=== PATIENT | female | born 1955 | race Caucasian/White ===

== ENCOUNTER 2024-08-25 07:40 | Day surgery (SDC) | payer OTHER ==
[2024-08-25 08:11] LABS: Absolute Basophils 0.1 K/uL (0-0.5); Absolute Eosinophils 0.2 K/uL (0-0.5); Absolute Monocytes 0.8 K/uL (0.1-1.3); Absolute Neutrophil 7.4 K/uL (1.8-8.0); Basophils % 1.1 % (0-1.3); Eosinophils % 1.8 % (0-4.4); Hematocrit 41.7 % (36.0-45.0); Lymphocytes % 19.2 % (15.3-44.8); MCHC 33.5 g/dL (32.0-36.0); MCV 92.6 fL (80-100); MPV 7.5 fL (7.6-11.3); Monocytes % 7.8 % (3.3-12.3); Neutrophils % 70.1 % (41.7-73.7); Platelets 308 thou/uL (152-406); RBC Red Blood Cell Count 4.51 M/uL (3.86-4.86); Red Cell Distribution Width 13.5 % (12.1-15.2)
[2024-08-25 08:14] LABS: PT Prothrombin Time 11.6 SECONDS (9.4-12.5); Protime INR 1.04
[2024-08-25 08:20] VITALS: O2SAT 96; BMI 30.9
[2024-08-25 08:28] LABS: Albumin 3.5 g/dL (3.4-5.0); Anion Gap 8.7 mEq/L (5.0-15.0); Bilirubin Direct 0.2 mg/dL (0-0.2); Bilirubin Indirect, Calculated 0.4 mg/dL (0.2-0.8); Bilirubin Total 0.6 mg/dL (0.2-1.0); Globulin 3.4 g/dL (2.3-3.5); Potassium 3.7 mEq/L (3.5-5.1); Protein, Total 6.9 g/dL (6.4-8.2)
[2024-08-25] MEDS ORDERED: HYDROCODONE/APAP 7.5/325 MG TAB ONE ×2 (09:49→12:00)
[2024-08-25 11:47] LABS: CSF Glucose 74 mg/dL (40-70)
--- NOTE | 2024-08-25 12:05 | RAD REPORT ---
XR SPINE LUMBAR PUNCTURE CLINICAL INDICATION: Memory loss. Mild cognitive impairment TECHNIQUE: The risks (including the risks of bleeding, infection, headache, nerve injury), benefits, and alternatives of the procedure were carefully explained to the patient who wished to proceed. Informed written consent was obtained . The patient was placed prone into the fluoroscopy suite. Skin and subcutaneous tissues were dissected with lidocaine Under fluoroscopic guidance a 22-gauge spinal needle was advanced into the thecal sac Approximately 14.5 cc CSF removed and sent to the lab. Complications: None Fluoroscopy time 0.4 minutes. No fluoroscopic spot image obtained. IMPRESSION: Lumbar puncture
[2024-08-25 12:50] LABS: Appearance CLEAR (CLEAR); Body Fluid Source CSF; Color of Supernate Not Xanthochromic (Not Xantho); Color of fluid Colorless (COLORLESS); Tube # #2
[2024-08-25 12:51] LABS: Body Fluid WBC 2 /mm^3
[2024-08-25 13:34] VITALS: BP 111/68; TEMP 97.2
== END 2024-08-25 13:10 | disposition home or self-care (01) ==
LOC: DS 07:40
PROVIDERS: ATTEND Psychiatry & Neurology Neurology with Special Qualifications in Child Neurology
PROC: 009U3ZX Drainage of Spinal Canal, Percutaneous Approach, Diagnostic (ICD-10-PCS; principal; 2024-08-25)
PROC: B01BZZZ Fluoroscopy of Spinal Cord (ICD-10-PCS; 2024-08-25)
DX: G31.84 Mild cognitive impairment of uncertain or unknown etiology (principal); D51.9 Vitamin B12 deficiency anemia, unspecified; E55.9 Vitamin D deficiency, unspecified; I10 Essential (primary) hypertension; M19.90 Unspecified osteoarthritis, unspecified site; G43.909 Migraine, unspecified, not intractable, without status migrainosus
CPT/HCPCS: 36415; 77003; 80048; 80076; 82542; 82945; 84157; 85025; 85610; 85730; 89050

== ENCOUNTER 2024-09-25 13:48 | Emergency (ER) | payer OTHER ==
[2024-09-25 14:49] LABS: Specific Gravity 1.007 (1.005-1.030); Sqamous Epithelial <5 /HPF (None Seen); Urine Bacteria None Seen /HPF (<20); Urine Bilirubin NEGATIVE (Negative); Urine Blood Negative (Negative); Urine Clarity Turbid (Clear); Urine Color Colorless (Yellow); Urine Culture Reflex Order NOT NEEDED; Urine Glucose TRACE (Negative); Urine Ketones NEGATIVE (Negative); Urine Microscopic Reflex YN ORDER UMIC; Urine Nitrite NEGATIVE (Negative); Urine Protein NEGATIVE (Negative); Urine RBC <5 /HPF (None Seen); Urine Urobilinogen Normal (Normal); Urine WBC <5 /HPF (<5); Urine WBC Clump Rare /HPF (None Seen); Urine Yeast (Budding) Trace /HPF (None Seen)
--- NOTE | 2024-09-25 14:56 | RAD REPORT ---
EXAM: Chest Single View HISTORY: htn COMPARISON: None. FINDINGS: LUNGS/PLEURA: The lungs are clear. No pleural effusions or pneumothorax. No pulmonary edema. MEDIASTINUM: The mediastinal silhouette is within normal limits. CARDIAC: The cardiac silhouette is within normal limits. UPPER ABDOMEN: No significant abnormality. BONES: No acute fracture. LINES/TUBES/OTHER: N/A IMPRESSION: No evidence of acute cardiopulmonary disease.
[2024-09-25 15:08] LABS: Absolute Basophils 0.1 K/uL (0-0.5); Absolute Eosinophils 0.1 K/uL (0-0.5); Absolute Lymphocytes (CBC) 1.9 K/uL (0.7-4.9); Absolute Monocytes 1.4 K/uL (0.1-1.3); Basophils % 0.8 % (0-1.3); Eosinophils % 0.4 % (0-4.4); Hematocrit 38.5 % (36.0-45.0); Hemoglobin 12.8 g/dL (12.0-15.0); Lymphocytes % 12.9 % (15.3-44.8); MCH 30.7 pg (27.0-35.0); MCHC 33.2 g/dL (32.0-36.0); MCV 92.5 fL (80-100); MPV 7.3 fL (7.6-11.3); Monocytes % 9.5 % (3.3-12.3); Neutrophils % 76.4 % (41.7-73.7); Platelets 376 thou/uL (152-406); RBC Red Blood Cell Count 4.16 M/uL (3.86-4.86); Red Cell Distribution Width 13.3 % (12.1-15.2)
[2024-09-25 15:10] LABS: PT Prothrombin Time 11.8 SECONDS (9.4-12.5); Protime INR 1.06
[2024-09-25 15:30] LABS: ALT/SGPT 30 U/L (13-56); AST/SGOT 24 U/L (15-37); Albumin 3.2 g/dL (3.4-5.0); Alkaline Phosphatase 105 U/L (45-117); Anion Gap 8.1 mEq/L (5.0-15.0); BUN Blood Urea Nitrogen 11 mg/dL (7-18); Bicarbonate 28 mEq/L (21-32); Bilirubin Direct < 0.2 mg/dL (0-0.2); Bilirubin Indirect, Calculated 0.1 mg/dL (0.2-0.8); Bilirubin Total 0.3 mg/dL (0.2-1.0); Globulin 3.2 g/dL (2.3-3.5); Glomerular Filtration Rate 78 ml/min (=/>90); Glucose Level 117 mg/dL (74-106); Magnesium 1.7 mg/dL (1.6-2.4); NT PRO-BNP 738 pg/mL (<125); Potassium 3.1 mEq/L (3.5-5.1); Protein, Total 6.4 g/dL (6.4-8.2); Sodium Level 138 mEq/L (136-145); Troponin High Sensitivity 10.7 pg/mL (<58.9)
--- NOTE | 2024-09-25 17:08 | ER ---
Nurse's Notes [facility] Name: Felecia Arriaza Age: 69 yrs Sex: Female : 1955 Arrival Date: 09/25/2024 Time: 13:48 Bed 17 Private MD: Diagnosis: Essential (primary) hypertension;Hypokalemia Presentation: 09/25 14:14 Chief complaint: Patient states: for a couple of days been feeling off, dizzy, tm6 lightheaded. blurry vision, ears ringing. Today home BPs were elevated. Coronavirus screen: Client denies travel out of the [place] in the last 14 days. Ebola Screen: Patient negative for fever greater than or equal to 101.5 degrees Fahrenheit, and additional compatible Ebola Virus Disease symptoms Patient denies exposure to infectious person. Patient denies travel to an Ebola-affected area in the 21 days before illness onset. No symptoms or risks identified at this time. Initial Sepsis Screen: Does the patient meet any 2 criteria? No. Patient's initial sepsis screen is negative. Does the patient have a suspected source of infection? No. Patient's initial sepsis screen is negative. Risk Assessment: Do you want to hurt yourself or someone else? Patient reports no desire to harm self or others. Onset of symptoms was September 22, 2024. 14:14 Method Of Arrival: Ambulatory tm6 14:14 Acuity: CARMELO 3 tm6 Triage Assessment: 14:16 General: Appears in no apparent distress. Behavior is calm, cooperative. Pain: Denies tm6 pain. EENT: No signs and/or symptoms were reported regarding the EENT system. Neuro: Level of Consciousness is awake, alert, obeys commands, Oriented to person, place, time, situation, Reports blurred vision for a couple of days dizziness. Cardiovascular: Patient's skin is warm and dry. Respiratory: Airway is patent Respiratory effort is even, unlabored, Respiratory pattern is regular, symmetrical. GI: No signs and/or symptoms were reported involving the gastrointestinal system. Abdomen is flat, non-distended. : No signs and/or symptoms were reported regarding the genitourinary system. Derm: No signs and/or symptoms reported regarding the dermatologic system. Musculoskeletal: No signs and/or symptoms reported regarding the musculoskeletal system. Historical: - Allergies: 14:16 Keflex; tm6 - PMHx: 14:16 Dementia; Hypertensive disorder; tm6 - PSHx: 14:16 hip and knee; tm6 - Immunization history:: Client reports receiving the 2nd dose of the Covid vaccine. - Infectious Disease History:: Denies. - Social history:: Smoking status: unknown. Screenin:05 [facility] ED Fall Risk Assessment (Adult) History of falling in the last 3 months, rs5 including since admission No falls in past 3 months (0 pts) Confusion or Disorientation No (0 pts) Intoxicated or Sedated No (0 pts) Impaired Gait No (0 pts) Mobility Assist Device Used No (0 pt) Altered Elimination No (0 pt) Score/Fall Risk Level 0 - 2 = Low Risk Oriented to surroundings, Maintained a safe environment. 14:05 Abuse screen: Denies threats or abuse. Nutritional screening: No deficits noted. rs5 Tuberculosis screening: No symptoms or risk factors identified. Assessment: 14:05 General: Appears in no apparent distress. comfortable, Behavior is calm, cooperative. rs5 Pain: Denies pain. Neuro: Level of Consciousness is awake, alert, obeys commands, Oriented to person, place, time, situation, pt states "my head doesn't hurt but it feels weird," provider notified . Cardiovascular: Patient's skin is warm and dry. Respiratory: Airway is patent Respiratory effort is even, unlabored, Respiratory pattern is regular, symmetrical. GI: Abdomen is round non-distended, Abd is soft and non tender X 4 quads. : No signs and/or symptoms were reported regarding the genitourinary system. EENT: No signs and/or symptoms were reported regarding the EENT system. Derm: Skin is intact, Skin is pink, warm \\T\\ dry. Musculoskeletal: Range of motion: intact in all extremities. 15:10 Reassessment: Patient and/or family updated on plan of care and expected duration. Pain rs5 level reassessed. Patient is alert, oriented x 3, equal unlabored respirations, skin warm/dry/pink. 15:45 Reassessment: Patient and/or family updated on plan of care and expected duration. Pain rs5 level reassessed. Patient is alert, oriented x 3, equal unlabored respirations, skin warm/dry/pink. 17:01 Reassessment: Patient and/or family updated on plan of care and expected duration. Pain rs5 level reassessed. Patient is alert, oriented x 3, equal unlabored respirations, skin warm/dry/pink. 17:30 Reassessment: Patient and/or family updated on plan of care and expected duration. Pain rs5 level reassessed. Patient is alert, oriented x 3, equal unlabored respirations, skin warm/dry/pink. Vital Signs: 14:14 BP 166 / 90; Pulse 73; Resp 19; Temp 96.5(TE); Pulse Ox 98% on R/A; MAP 109 mmHg; tm6 Weight 81.65 kg; Height 5 ft. 4 in. ; Pain 0/10; 15:43 BP 162 / 74; Pulse 60; Resp 17; Temp 98(O); Pulse Ox 99% on R/A; rs5 16:33 BP 151 / 73; Pulse 70; Resp 16; Pulse Ox 99% on R/A; rs5 17:22 BP 155 / 77; Pulse 64; Resp 17; Pulse Ox 99% on R/A; rs5 14:14 Body Mass Index 30.90 (81.65 kg, 162.56 cm) tm6 14:14 Pain Scale: Adult tm6 Polo Coma Score: 17:05 Eye Response: spontaneous(4). Motor Response: obeys commands(6). Verbal Response: estefani oriented(5). Total: 15. NIH Stroke Scale Scores: 17:04 NIHSS Score: 0 estefani ED Course: 13:50 Patient arrived in ED. mr 13:54 Jean Pierre Schultz MD is Attending Physician. estefani 14:05 Patient has correct armband on for positive identification. Placed in gown. Bed in low rs5 position. Call light in reach. Side rails up X 1. 14:12 No provider procedures requiring assistance completed. Inserted saline lock: 20 gauge rs5 in right antecubital area, using aseptic technique. Blood collected. Flushed with 10 mL NS. 14:15 Karthikeyan Shah, LOIS is Primary Nurse. rs5 14:16 Triage completed. tm6 14:16 Arm band placed on right wrist. tm6 14:51 XRAY Chest (1 view) In Process Unspecified. EDMS 17:07 Puma Dailey MD is Referral Physician. estefani 17:35 IV discontinued, intact, bleeding controlled, No redness/swelling at site. Pressure rs5 dressing applied. Administered Medications: 17:05 Drug: Potassium PO Effervescent Tablet 50 mEq PO once; dissolve in 4 ounces of water or rs5 juice Route: PO; 17:33 Follow up: Response: No adverse reaction rs5 17:10 Drug: Norvasc PO 5 mg PO once Route: PO; rs5 17:33 Follow up: Response: No adverse reaction rs5 Medication: 15:46 VIS not applicable for this client. rs5 Outcome: 17:08 Discharge ordered by MD. jara 17:35 Discharged to home ambulatory, rs5 17:35 Condition: stable rs5 17:35 Discharge instructions given to patient, family, Instructed on discharge instructions, follow up and referral plans. medication usage, Demonstrated understanding of instructions, follow-up care, medications, Prescriptions given X 4, 17:39 Patient left the ED. rs5 NIH Stroke Scale - NIH Stroke Score Date: 09/25/2024 Time: 17:04 Total Score = 0 10. Dysarthria (speech clarity - read or repeat words) - 0(Normal) 11. Extinction and Inattention (visual/tactile/auditory/spatial/personal) - 0(No abnormality) 1a. Level of Consciousness (LOC) - 0(Alert) 1b. Level of Consciousness (LOC) (Month \\T\\ Age) - 0(Both) 1c. LOC Commands (Open \\T\\ Closes Eyes/Rug Frame Mounter) - 0(Both) 2. Best Gaze (Lateral Gaze Paresis) - 0(Normal) 3. Visual Field Loss - 0(No visual loss) 4. Facial Palsy - 0(Normal) 5a. Left Arm: Motor (10-second hold) - 0(No drift) 5b. Right Arm: Motor (10-second hold) - 0(No drift) 6a. Left Leg: Motor (5-second hold - always test supine) - 0(No drift) 6b. Right Leg: Motor (5-second hold - always test supine) - 0(No drift) 7. Limb Ataxia (finger/nose \\T\\ heel/cohen - test with eyes open) - 0(Absent) 8. Sensory Loss (pinprick arms/legs/face) - 0(Normal) 9. Best Language: Aphasia (description/naming/reading) - 0(No aphasia) Initials: estefani Signatures: Dispatcher [employer] Jean Pierre Mckeon MD MD cha Rivera, Mary, [facility] mr Karthikeyan Shah, RN RN rs5 Sarah Jenkins RN RN tm6
--- NOTE | 2024-09-25 17:08 | EDPHYS ---
Physician Documentation [facility] Name: Felecia Arriaza Age: 69 yrs Sex: Female : 1955 Arrival Date: 09/25/2024 Time: 13:48 Bed 17 Private MD: ED Physician Jean Pierre Schultz HPI: 09/25 17:03 This 69 yrs old Female presents to ER via Ambulatory with complaints of High Blood estefani Pressure. 17:03 The patient has elevated blood pressure and discovered this at home, with a home estefani device. Onset: The symptoms/episode began/occurred 5 day(s) ago. Modifying factors: The symptoms are aggravated by activity, The symptoms are alleviated by remaining still. Associated signs and symptoms: The patient has no apparent associated signs or symptoms. Severity of symptoms: At its worst the blood pressure was moderate, in the emergency department the blood pressure is unchanged. Historical: - Allergies: 14:16 Keflex; tm6 - PMHx: 14:16 Dementia; Hypertensive disorder; tm6 - PSHx: 14:16 hip and knee; tm6 - Immunization history:: Client reports receiving the 2nd dose of the Covid vaccine. - Infectious Disease History:: Denies. - Social history:: Smoking status: unknown. ROS: 17:04 Constitutional: Negative for fever, chills, and weight loss, Eyes: Negative for injury, estefani pain, redness, and discharge, ENT: Negative for injury, pain, and discharge, Neck: Negative for injury, pain, and swelling, Cardiovascular: Negative for chest pain, palpitations, and edema, Respiratory: Negative for shortness of breath, cough, wheezing, and pleuritic chest pain, Abdomen/GI: Negative for abdominal pain, nausea, vomiting, diarrhea, and constipation, Back: Negative for injury and pain, : Negative for injury, bleeding, discharge, and swelling, MS/Extremity: Negative for injury and deformity, Skin: Negative for injury, rash, and discoloration, Neuro: Negative for headache, weakness, numbness, tingling, and seizure, Psych: Negative for depression, anxiety, suicide ideation, homicidal ideation, and hallucinations, Allergy/Immunology: Negative for hives, rash, and allergies, Endocrine: Negative for neck swelling, polydipsia, polyuria, polyphagia, and marked weight changes, Hematologic/Lymphatic: Negative for swollen nodes, abnormal bleeding, and unusual bruising, Exam: 17:04 Constitutional: This is a well developed, well nourished patient who is awake, alert, estefani and in no acute distress. Head/Face: Normocephalic, atraumatic. Eyes: Pupils equal round and reactive to light, extra-ocular motions intact. Lids and lashes normal. Conjunctiva and sclera are non-icteric and not injected. Cornea within normal limits. Periorbital areas with no swelling, redness, or edema. ENT: Nares patent. No nasal discharge, no septal abnormalities noted. Tympanic membranes are normal and external auditory canals are clear. Oropharynx with no redness, swelling, or masses, exudates, or evidence of obstruction, uvula midline. Mucous membranes moist. Neck: Trachea midline, no thyromegaly or masses palpated, and no cervical lymphadenopathy. Supple, full range of motion without nuchal rigidity, or vertebral point tenderness. No Meningismus. Chest/axilla: Normal chest wall appearance and motion. Nontender with no deformity. No lesions are appreciated. Cardiovascular: Regular rate and rhythm with a normal S1 and S2. No gallops, murmurs, or rubs. Normal PMI, no JVD. No pulse deficits. Respiratory: Lungs have equal breath sounds bilaterally, clear to auscultation and percussion. No rales, rhonchi or wheezes noted. No increased work of breathing, no retractions or nasal flaring. Abdomen/GI: Soft, non-tender, with normal bowel sounds. No distension or tympany. No guarding or rebound. No evidence of tenderness throughout. Back: No spinal tenderness. No costovertebral tenderness. Full range of motion. Female : Normal external genitalia. Skin: Warm, dry with normal turgor. Normal color with no rashes, no lesions, and no evidence of cellulitis. MS/ Extremity: Pulses equal, no cyanosis. Neurovascular intact. Full, normal range of motion. Neuro: Awake and alert, GCS 15, oriented to person, place, time, and situation. Cranial nerves II-XII grossly intact. Motor strength 5/5 in all extremities. Sensory grossly intact. Cerebellar exam normal. Normal gait. Psych: Awake, alert, with orientation to person, place and time. Behavior, mood, and affect are within normal limits. 17:04 ECG was reviewed by the Attending Physician. Vital Signs: 14:14 BP 166 / 90; Pulse 73; Resp 19; Temp 96.5(TE); Pulse Ox 98% on R/A; MAP 109 mmHg; tm6 Weight 81.65 kg; Height 5 ft. 4 in. ; Pain 0/10; 15:43 BP 162 / 74; Pulse 60; Resp 17; Temp 98(O); Pulse Ox 99% on R/A; rs5 16:33 BP 151 / 73; Pulse 70; Resp 16; Pulse Ox 99% on R/A; rs5 17:22 BP 155 / 77; Pulse 64; Resp 17; Pulse Ox 99% on R/A; rs5 14:14 Body Mass Index 30.90 (81.65 kg, 162.56 cm) tm6 14:14 Pain Scale: Adult tm6 NIH Stroke Scale Scores: 17:04 NIHSS Score: 0 estefani Polo Coma Score: 17:05 Eye Response: spontaneous(4). Motor Response: obeys commands(6). Verbal Response: estefani oriented(5). Total: 15. MDM: 13:54 Medical Screening Exam initiated estefani 17:05 Differential diagnosis: cluster headache, hypertensive crisis, Malignant HTN, estefani hypertensive headache. Data reviewed: vital signs, nurses notes, lab test result(s), EKG, radiologic studies, plain films. Consideration of Admission/Observation Escalation of care including admission/observation considered. I considered the following discharge prescriptions or medication management in the emergency department Medications were administered in the Emergency Department. See MAR. Independent interpretation of the following test(s) in the Emergency Department EKG: See my EKG interpretation above. Test considered but Not performed: CT: no ct head. Historians other than the Patient: Family Member: 2 family members well informed. 09/25 13:59 Order name: Basic Metabolic Panel; Complete Time: 16:46 estefani 09/25 13:59 Order name: CBC with Diff; Complete Time: 15:20 09/25 13:59 Order name: LFT's; Complete Time: 16:46 09/25 13:59 Order name: Magnesium; Complete Time: 16:46 09/25 13:59 Order name: NT PRO-BNP; Complete Time: 16:46 09/25 13:59 Order name: PT-INR; Complete Time: 15:20 09/25 13:59 Order name: Troponin HS; Complete Time: 16:46 [facility] 09/25 13:59 Order name: Urinalysis w/ reflexes; Complete Time: 15:20 [facility] 09/25 13:59 Order name: XRAY Chest (1 view); Complete Time: 15:20 [facility] 09/25 13:59 Order name: Cardiac monitoring; Complete Time: 15:02 [facility] 09/25 13:59 Order name: EKG - Nurse/Tech; Complete Time: 15:02 [facility] 09/25 13:59 Order name: IV Saline Lock; Complete Time: 15: [facility] 09/25 13:59 Order name: Labs collected and sent; Complete Time: 15: [facility] 09/25 13:59 Order name: O2 Per Protocol; Complete Time: 15: [facility] 09/25 13:59 Order name: O2 Sat Monitoring; Complete Time: 15:02 [facility] EC:04 Rate is 64 beats/min. Rhythm is regular. QRS [place] is Normal. AL interval is normal. QRS estefani interval is normal. QT interval is normal. No Q waves. T waves are Normal. No ST changes noted. Clinical impression: Normal ECG and No evidence of ischemia. Interpreted by me. Reviewed by me. Administered Medications: 17:05 Drug: Potassium PO Effervescent Tablet 50 mEq PO once; dissolve in 4 ounces of water or rs5 juice Route: PO; 17:33 Follow up: Response: No adverse reaction rs5 17:10 Drug: Norvasc PO 5 mg PO once Route: PO; rs5 17:33 Follow up: Response: No adverse reaction rs5 Disposition Summary: 09/25/24 17:08 Discharge Ordered Notes: Location: Home estefani Problem: new estefani Symptoms: have improved estefani Condition: Stable estefani Diagnosis - Essential (primary) hypertension estefani - Hypokalemia estefani Followup: estefani - With: Private Physician - When: 2 - 3 days - Reason: Recheck today's complaints, Continuance of care, Re-evaluation by your physician Followup: estefani - With: Puma Dailey MD - When: 2 - 3 days - Reason: Recheck today's complaints, Continuance of care, Re-evaluation by your physician Discharge Instructions: - Discharge Summary Sheet estefani - Potassium Content of Foods estefani - Hypertension, Adult estefani - Hypertension, Adult, [id number] estefani - How to Take Your Blood Pressure, [id number] estefani - Aspirin and Your Heart estefani - Hypokalemia estefani - Managing Your Hypertension [facility] Forms: - Medication Reconciliation Form estefani - Antibiotic Education estefani - Prescription Opioid Use estefani - Patient Portal Instructions [facility] - Leadership Thank You Letter [facility] Prescriptions: - bisoprolol-hydrochlorothiazide 5-6.25 mg Oral tablet - take 1 tablet ORAL route every 12 hours; 40 tablet; Refills: 0, Product estefani Selection Permitted - Norvasc 5 mg Oral Tablet - take 1 tablet ORAL route once daily; 20 tablet; Refills: 0, Product Selection estefani Permitted - Potassium Chloride 20 meq Oral Packet - take 1 packet ORAL route once daily 1 packet in 6 (six) ounces of water or estefani juice; Take after meal; 20 packet; Refills: 0, Product Selection Permitted - Lisinopril 20 mg Oral tablet - take 1 tablet ORAL route every 12 hours; 40 tablet; Refills: 0, Product estefani Selection Permitted NIH Stroke Scale - NIH Stroke Score Date: 09/25/2024 Time: 17:04 Total Score = 0 10. Dysarthria (speech clarity - read or repeat words) - 0(Normal) 11. Extinction and Inattention (visual/tactile/auditory/spatial/personal) - 0(No abnormality) 1a. Level of Consciousness (LOC) - 0(Alert) 1b. Level of Consciousness (LOC) (Month \T\ Age) - 0(Both) 1c. LOC Commands (Open \T\ Closes Eyes/Manufacturer'S Service Representative) - 0(Both) 2. Best Gaze (Lateral Gaze Paresis) - 0(Normal) 3. Visual Field Loss - 0(No visual loss) 4. Facial Palsy - 0(Normal) 5a. Left Arm: Motor (10-second hold) - 0(No drift) 5b. Right Arm: Motor (10-second hold) - 0(No drift) 6a. Left Leg: Motor (5-second hold - always test supine) - 0(No drift) 6b. Right Leg: Motor (5-second hold - always test supine) - 0(No drift) 7. Limb Ataxia (finger/nose \T\ heel/cohen - test with eyes open) - 0(Absent) 8. Sensory Loss (pinprick arms/legs/face) - 0(Normal) 9. Best Language: Aphasia (description/naming/reading) - 0(No aphasia) Initials: estefani Signatures: Dispatcher [employer] EDJean Pierre Dunham MD MD cha Sotelo, Ricky, RN RN rs5 Sarah Jenkins RN RN tm6 Corrections: (The following items were deleted from the chart) 13:59 13:59 Chest Single View+[email or web address] ordered. EDMS EDMS
[2024-09-25] MEDS ORDERED: POTASSIUM 25 MEQ EFFERV TAB ONE (17:09)
[2024-09-25] MEDS ORDERED: AMLODIPINE 5 MG TAB ONE (17:17)
[2024-09-25 19:46] VITALS: BP 162/74; TEMP 98; O2SAT 99
--- NOTE | 2024-09-27 14:15 | EKG ---
Test Date: 2024-09-25 Test Time: 14:36:14 Roll Reclaimer: RL MEASUREMENT RESULTS: Intervals: Rate: 64 FL: 148 QRSD: 86 QT: 442 QTc: 455 [place]: P: 53 FL: 148 QRS: -24 T: 26 INTERPRETIVE STATEMENTS: Normal sinus rhythm Nonspecific ST and T wave abnormality Abnormal ECG Compared to ECG 02/09/2016 11:38:59 ST (T wave) deviation now present Electronically Signed On 09-27-24 14:12:25 TAKER AWAY by Saad Burks
== END 2024-09-25 17:39 | disposition home or self-care (01) ==
LOC: ER 13:48
DX: I10 Essential (primary) hypertension (principal); E87.6 Hypokalemia
CPT/HCPCS: 36415; 71045; 80048; 80076; 81001; 83735; 83880; 84484; 85025; 85610; 93005; 99284

== ENCOUNTER 2024-09-26 17:54 | Emergency (ER) | payer OTHER ==
[2024-09-26] MEDS ORDERED: HYDRALAZINE HCL 20 MG/ML VIAL ONE (19:24)
[2024-09-26] MEDS ORDERED: AMLODIPINE 10 MG TAB ONE (19:24)
--- NOTE | 2024-09-26 19:29 | RAD REPORT ---
EXAMINATION: CT HEAD WITHOUT CONTRAST CLINICAL INDICATION: Female, 69 years old.ringing in ears, htn TECHNIQUE: Axial CT images from the skull base to the vertex without intravenous contrast. Coronal an d sagittal reformatted images were created from the data set. One or more of the following dose reduction techniques were used: Automated exposure control, adjustment of the mA and/or kV according to patient size, and/or iterative reconstruction. Unless otherwise specified, incidental findings do not require dedicated imaging follow-up. [id number]. COMPARISON: No prior exam. FINDINGS: INTRACRANIAL: No acute intracranial hemorrhage. No hydrocephalus. No mass effect or midline shift. No significant white matter disease. VASCULATURE: No visualized abnormalities in the arteries or dural venous sinuses. SCALP/SKULL: No significant soft tissue or osseous abnormalities. SINUSES: The visualized paranasal sinuses and mastoid air cells are predominantly clear. IMPRESSION: No acute intracranial abnormality.
[2024-09-26 19:51] LABS: Absolute Basophils 0.1 K/uL (0-0.5); Absolute Eosinophils 0.2 K/uL (0-0.5); Absolute Lymphocytes (CBC) 2.8 K/uL (0.7-4.9); Absolute Monocytes 1.1 K/uL (0.1-1.3); Absolute Neutrophil 7.8 K/uL (1.8-8.0); Basophils % 1.1 % (0-1.3); Eosinophils % 1.3 % (0-4.4); Hematocrit 39.7 % (36.0-45.0); Hemoglobin 13.1 g/dL (12.0-15.0); Lymphocytes % 23.1 % (15.3-44.8); MCH 30.9 pg (27.0-35.0); MCV 93.6 fL (80-100); MPV 7.5 fL (7.6-11.3); Monocytes % 9.2 % (3.3-12.3); Neutrophils % 65.3 % (41.7-73.7); Platelets 390 thou/uL (152-406); RBC Red Blood Cell Count 4.25 M/uL (3.86-4.86); Red Cell Distribution Width 13.5 % (12.1-15.2)
[2024-09-26 19:56] LABS: Specific Gravity 1.008 (1.005-1.030); Urine Bilirubin NEGATIVE (Negative); Urine Blood Negative (Negative); Urine Clarity Clear (Clear); Urine Color Light-Yellow (Yellow); Urine Glucose NEGATIVE (Negative); Urine Ketones NEGATIVE (Negative); Urine Microscopic Reflex YN NO UMIC; Urine Nitrite NEGATIVE (Negative); Urine Protein NEGATIVE (Negative); Urine Urobilinogen Normal (Normal); Urine pH 7.5 (5.0-7.0)
--- NOTE | 2024-09-26 19:59 | RAD REPORT ---
EXAM: Chest Single View HISTORY: elevated blood pressure COMPARISON: 09/25/2024 FINDINGS: LUNGS/PLEURA: The lungs are clear. No pleural effusions or pneumothorax. No pulmonary edema. MEDIASTINUM: The mediastinal silhouette is within normal limits. CARDIAC: The cardiac silhouette is within normal limits. UPPER ABDOMEN: No significant abnormality. BONES: No acute fracture. LINES/TUBES/OTHER: N/A IMPRESSION: No evidence of acute cardiopulmonary disease.
[2024-09-26 20:08] LABS: Anion Gap 9.6 mEq/L (5.0-15.0); Potassium 3.6 mEq/L (3.5-5.1); Troponin High Sensitivity 9.2 pg/mL (<58.9)
[2024-09-26] MEDS ORDERED: NA CHLORIDE 0.9% 500 ML ONE (20:43)
[2024-09-26] MEDS ORDERED: MECLIZINE HCL 12.5 MG TAB ONE (20:43)
[2024-09-26] MEDS ORDERED: LORazepam 2 MG/ML VIAL ONE (23:05)
--- NOTE | 2024-09-26 23:32 | EDPHYS ---
Physician Documentation [facility] Name: Felecia Arriaza Age: 69 yrs Sex: Female : 1955 Arrival Date: 09/26/2024 Time: 17:54 Bed 19 Private MD: ED Physician Jean Pierre Schultz HPI: 09/26 19:00 This 69 yrs old Female presents to ER via Ambulatory with complaints of High Blood cp Pressure. 19:00 The patient has elevated blood pressure and discovered this at a drugstore. cp 19:00 Onset: The symptoms/episode began/occurred gradually, and became worse today. The cp patient has experienced similar episodes in the past, seen in this ED previous night for elevated blood pressure and prescribed blood pressure medications. Patient is accompanied to the emergency department by her sister who reports they were at the pharmacy filling the prescriptions for the blood pressure medicine when they checked her blood pressure and noticed that it was elevated with a systolic pressure of 213. They became concerned so they proceeded to the emergency department for reevaluation today. Patient reportedly is prescribed 3 blood pressure medications. Patient complains of a headache, ringing in the ears and dizziness. Denies any chest pain. Historical: - Allergies: 18:50 Keflex; ss - PMHx: 18:50 Dementia; Hypertensive disorder; ss - PSHx: 18:50 hip and knee; ss - Immunization history:: Adult Immunizations unknown. - Infectious Disease History:: Denies. - Social history:: Smoking status: Patient denies any tobacco usage or history of. ROS: 19:05 Constitutional: Negative for body aches, chills, fever, poor PO intake, cp 19:05 Eyes: Negative for injury, pain, redness, and discharge, cp 19:05 Cardiovascular: Negative for chest pain, edema, palpitations, 19:05 Respiratory: Negative for cough, shortness of breath, wheezing, 19:05 ENT: Positive for tinnitus, Negative for drainage from ear(s), ear pain, sore throat, cp difficulty swallowing, difficulty handling secretions, 19:05 Abdomen/GI: Negative for vomiting, diarrhea, constipation, 19:05 Neuro: Positive for dizziness, headache, Negative for altered mental status, numbness, syncope, near syncope, weakness, 19:05 All other systems are negative, Exam: 19:10 Constitutional: The patient appears in no acute distress, alert, awake, cp non-diaphoretic, non-toxic, well developed, well nourished, 19:10 Head/Face: Normocephalic, atraumatic. cp 19:10 Eyes: Periorbital structures: appear normal, Pupils: equal, round, and reactive to light and accomodation, Extraocular movements: intact throughout, Conjunctiva: normal, no exudate, no injection, Sclera: no appreciated abnormality, Lids and lashes: appear normal, bilaterally, 19:10 ENT: External ear(s): are unremarkable, Nose: is normal, Mouth: Lips: moist, Oral mucosa: pink and intact, moist, Posterior pharynx: Airway: no evidence of obstruction, patent, 19:10 Neck: ROM/movement: is normal, is supple, without pain, no range of motions limitations, 19:10 Chest/axilla: Inspection: normal, 19:10 Cardiovascular: Rate: normal, Rhythm: regular, Edema: is not appreciated, JVD: is not appreciated, 19:10 Respiratory: the patient does not display signs of respiratory distress, Respirations: normal, no use of accessory muscles, no retractions, labored breathing, is not present, Breath sounds: are clear throughout, no decreased breath sounds, no stridor, no wheezing, 19:10 Abdomen/GI: Inspection: abdomen appears normal, Palpation: abdomen is soft and non-tender, in all quadrants, 19:10 Neuro: Orientation: no acute changes, per family, Mentation: no acute changes, per family, Motor: moves all fours, no focal deficits, Gait: is steady, Vital Signs: 18:49 BP 189 / 100; Pulse 77; Resp 17; Temp 97.2(TE); Pulse Ox 97% ; Weight 81.65 kg; Height ss 5 ft. 4 in. ; 18:50 BP 182 / 118; ss 19:39 BP 173 / 81; lg3 20:06 BP 167 / 92; Pulse 78; Pulse Ox 95% on R/A; MAP 114 mmHg; tm6 20:58 BP 158 / 75; Pulse 76; Resp 20; Pulse Ox 98% on R/A; kj2 22:10 BP 170 / 79; Pulse 73; Resp 18; Pulse Ox 96% on R/A; kj2 23:46 BP 107 / 74; Pulse 80; Resp 18; Temp 98; Pulse Ox 98% on R/A; kj2 09/27 00:57 BP 135 / 90; Pulse 80; Resp 18; Temp 98; Pulse Ox 98% on R/A; kj2 09/26 18:49 Body Mass Index 30.90 (81.65 kg, 162.56 cm) ss MDM: 09/26 18:49 Medical Screening Exam initiated 19:00 Differential diagnosis: hypertensive crisis, Malignant HTN, CVA, intracerebral cp hemorrhage. 23:30 Data reviewed: vital signs, nurses notes, lab test result(s), EKG, radiologic studies, cp CT scan, plain films, and as a result, I will discharge patient. 23:30 I considered the following discharge prescriptions or medication management in the emergency department Medications were administered in the Emergency Department. See MAR. Independent interpretation of the following test(s) in the Emergency Department EKG: See my EKG interpretation above. 23:30 Response to treatment: the patient's symptoms have markedly improved after treatment, and as a result, I will discharge patient. ED course: Vital signs stable. Had an extensive discussion with patient and her family concerning her blood pressure medications. Patient has a history of dementia and has a sister that is not present who assists with helping patient manage her medications. At this time and is unclear whether or not patient has been taking prescribed blood pressure meds and so I discussed that at this point I will not make any changes to her blood pressure medications and that they need to continue to monitor and make sure patient is taking blood pressure medications as prescribed and to follow-up with her primary care physician or feed mill operator to go over her meds. 09/26 18:56 Order name: Basic Metabolic Panel; Complete Time: 20:10 09/26 20:10 Interpretation: Normal except: GLUC 142; CA 10.9. 09/26 18:56 Order name: CBC with Diff; Complete Time: 20:09 09/26 20:09 Interpretation: Normal except: WBC 12.00; MPV 7.5. 09/26 18:56 Order name: Magnesium; Complete Time: 20:10 09/26 18:56 Order name: Troponin HS; Complete Time: 20:10 09/26 19:53 Order name: Urinalysis w/ reflexes; Complete Time: 20:09 EDMS 09/26 20:09 Interpretation: Normal except: UPH 7.5. 09/26 18:56 Order name: XRAY Chest (1 view); Complete Time: 20:09 cp 09/26 20:09 Interpretation: Report review. 09/26 18:58 Order name: CT Head Brain wo Cont; Complete Time: 20:09 cp 09/26 20:09 Interpretation: Report reviewed. 09/26 18:56 Order name: EKG; Complete Time: 18:56 09/26 18:56 Order name: EKG - Nurse/Tech; Complete Time: 19:43 cp 09/26 18:56 Order name: IV Saline Lock; Complete Time: 19:43 09/26 18:56 Order name: Labs collected and sent; Complete Time: 19:43 09/26 18:56 Order name: O2 Per Protocol; Complete Time: 19:43 09/26 18:56 Order name: O2 Sat Monitoring; Complete Time: 19:43 cp Administered Medications: 19:43 Drug: amLODIPine PO 10 mg PO once Route: PO; lg3 23:25 Follow up: Response: No adverse reaction kj2 19:43 Drug: hydrALAZINE IVP 10 mg IVP once Route: IVP; Site: right antecubital; lg3 23:25 Follow up: Response: No adverse reaction kj2 20:46 Drug: Meclizine PO 25 mg PO once Route: PO; kj2 23:24 Follow up: Response: No adverse reaction kj2 20:47 Drug: NS 0.9% IV 500 ml 500 ml IV at 1 bolus once; to be given as a bolus over 60 kj2 minutes Volume: 500 ml; Route: IV; Rate: 1 bolus; Site: right antecubital; 21:47 Follow up: IV Status: Completed infusion; IV Intake: 500ml kj2 23:33 Drug: Ativan IVP 0.5 mg IVP once Route: IVP; Site: right antecubital; kj2 23:46 Follow up: Response: No adverse reaction; Anxiety decreased; Blood pressure is lowered kj2 09/27 00:14 Drug: Acetaminophen PO 1000 mg PO once Route: PO; kj2 00:56 Follow up: Response: No adverse reaction kj2 Disposition Summary: 09/26/24 23:31 Discharge Ordered Notes: Location: Home cp Problem: chronic cp Symptoms: have improved cp Condition: Stable cp Diagnosis - Hypertensive heart disease without heart failure cp - Headache cp - Tinnitus, unspecified ear cp Followup: cp - With: Private Physician - When: 2 - 3 days - Reason: Recheck today's complaints Discharge Instructions: - Discharge Summary Sheet cp - Tinnitus cp - General Headache Without Cause cp - Hypertension, Adult cp - Aspirin and Your Heart cp - Form - Blood Pressure Record Sheet cp - How to Take Your Blood Pressure cp Forms: - Medication Reconciliation Form cp - Antibiotic Education cp - Prescription Opioid Use cp - Patient Portal Instructions cp - Leadership Thank You Letter cp Signatures: Dispatcher [employer] EDMS Lindy Vale, RN RN ss Jean Pierre Gunderson PA PA cp Paula Hameed RN RN lg3 Tonia Masterson RN RN kj2 Corrections: (The following items were deleted from the chart) 09/26 18:56 18:56 BASIC METABOLIC PANEL+C.LAB.BRZ ordered. EDMS EDMS 18:56 18:56 CBC+H.LAB.BRZ ordered. EDMS EDMS 18:56 18:56 MAGNESIUM+C.LAB.BRZ ordered. EDMS EDMS 18:56 18:56 Troponin High Sensitivity+C.LAB.BRZ ordered. EDMS EDMS
--- NOTE | 2024-09-26 23:32 | ER ---
Nurse's Notes [facility] Name: Felecia Arriaza Age: 69 yrs Sex: Female : 1955 Arrival Date: 09/26/2024 Time: 17:54 Bed 19 Private MD: Diagnosis: Hypertensive heart disease without heart failure;Headache;Tinnitus, unspecified ear Presentation: 09/26 18:49 Chief complaint: Patient states: high blood pressure. Coronavirus screen: Client denies ss travel out of the [place] in the last 14 days. Ebola Screen: Patient denies exposure to infectious person. Patient denies travel to an Ebola-affected area in the 21 days before illness onset. Initial Sepsis Screen: Does the patient meet any 2 criteria? No. Patient's initial sepsis screen is negative. Does the patient have a suspected source of infection? No. Patient's initial sepsis screen is negative. Risk Assessment: Do you want to hurt yourself or someone else? Patient reports no desire to harm self or others. Onset of symptoms is unknown. 18:49 Method Of Arrival: Ambulatory ss 18:49 Acuity: CARMELO 3 ss Triage Assessment: 19:45 General: Appears in no apparent distress. Behavior is cooperative. Pain: Complains of kj2 pain in HEADACHE. Historical: - Allergies: 18:50 Keflex; ss - PMHx: 18:50 Dementia; Hypertensive disorder; ss - PSHx: 18:50 hip and knee; ss - Immunization history:: Adult Immunizations unknown. - Infectious Disease History:: Denies. - Social history:: Smoking status: Patient denies any tobacco usage or history of. Screenin:45 [facility] ED Fall Risk Assessment (Adult) History of falling in the last 3 months, kj2 including since admission No falls in past 3 months (0 pts) Confusion or Disorientation Yes (5 pts) Intoxicated or Sedated No (0 pts) Impaired Gait Yes (1 pt) Mobility Assist Device Used Yes (1 pt) Altered Elimination No (0 pt) Score/Fall Risk Level 3 or more points = High Risk Maintained a safe environment, Hourly rounding (assess needs \T\ fall precautionary measures) done, Utilized family, sitter, or virtual concrete engineer as indicated. Abuse screen: Denies threats or abuse. Denies injuries from another. Nutritional screening: No deficits noted. Tuberculosis screening: No symptoms or risk factors identified. Assessment: 20:07 Reassessment: from [facility], patient stated she was dizzy/lightheaded. VS rechecked, tm6 provider notified. 20:30 Reassessment: Patient appears in no apparent distress at this time. Patient and/or kj2 family updated on plan of care and expected duration. Pain level reassessed. Patient is alert, oriented x 3, equal unlabored respirations, skin warm/dry/pink. 20:59 Reassessment: Patient appears in no apparent distress at this time. Patient and/or kj2 family updated on plan of care and expected duration. Pain level reassessed. Patient is alert, oriented x 3, equal unlabored respirations, skin warm/dry/pink. 22:10 Reassessment: Patient appears in no apparent distress at this time. Patient and/or kj2 family updated on plan of care and expected duration. Pain level reassessed. Patient is alert, oriented x 3, equal unlabored respirations, skin warm/dry/pink. 23:29 Reassessment: Patient appears in no apparent distress at this time. Patient and/or kj2 family updated on plan of care and expected duration. Pain level reassessed. Patient is alert, oriented x 3, equal unlabored respirations, skin warm/dry/pink. 23:40 Reassessment: DISCHARGE ON HOLD, PT C/O HEADACHE. kj2 09/27 00:14 Reassessment: PATIENT REPORTS FEELING WORSE, PROVIDER NOTIFIED. kj2 00:56 Reassessment: No changes from previously documented assessment. Patient and/or family kj2 updated on plan of care and expected duration. Pain level reassessed. Patient is alert, oriented x 3, equal unlabored respirations, skin warm/dry/pink. Vital Signs: 09/26 18:49 BP 189 / 100; Pulse 77; Resp 17; Temp 97.2(TE); Pulse Ox 97% ; Weight 81.65 kg; Height ss 5 ft. 4 in. ; 18:50 BP 182 / 118; ss 19:39 BP 173 / 81; lg3 20:06 BP 167 / 92; Pulse 78; Pulse Ox 95% on R/A; MAP 114 mmHg; tm6 20:58 BP 158 / 75; Pulse 76; Resp 20; Pulse Ox 98% on R/A; kj2 22:10 BP 170 / 79; Pulse 73; Resp 18; Pulse Ox 96% on R/A; kj2 23:46 BP 107 / 74; Pulse 80; Resp 18; Temp 98; Pulse Ox 98% on R/A; kj2 09/27 00:57 BP 135 / 90; Pulse 80; Resp 18; Temp 98; Pulse Ox 98% on R/A; kj2 09/26 18:49 Body Mass Index 30.90 (81.65 kg, 162.56 cm) ED Course: 09/26 17:56 Patient arrived in ED. im 18:16 Jean Pierre Gunderson PA is PHCP. cp 18:16 Jean Pierre Schultz MD is Attending Physician. cp 18:50 Triage completed. ss 18:50 Arm band placed on left wrist. ss 19:05 Patient has correct armband on for positive identification. Bed in low position. Call kj2 light in reach. Adult w/ patient. Provided Education on: CALL LIGHT. 19:19 CT Head Brain wo Cont In Process Unspecified. EDMS 19:43 Initial lab(s) drawn, by ED staff, sent to lab. Inserted saline lock: 22 gauge in right lg3 antecubital area, using aseptic technique. Blood collected. Flushed with 10 mL NS. 19:43 Basic Metabolic Panel Sent. lg3 19:43 Magnesium Sent. lg3 19:43 CBC with Diff Sent. lg3 19:43 Troponin HS Sent. lg3 19:46 XRAY Chest (1 view) In Process Unspecified. EDMS 19:51 EKG done, by ED staff, reviewed by Jean Pierre BLUM. oe 20:40 Tonia Masterson, RN is Primary Nurse. kj2 23:27 Assisted to bathroom. kj2 23:47 No provider procedures requiring assistance completed. IV discontinued, intact, kj2 bleeding controlled, No redness/swelling at site. Pressure dressing applied. Administered Medications: 19:43 Drug: amLODIPine PO 10 mg PO once Route: PO; lg3 23:25 Follow up: Response: No adverse reaction kj2 19:43 Drug: hydrALAZINE IVP 10 mg IVP once Route: IVP; Site: right antecubital; lg3 23:25 Follow up: Response: No adverse reaction kj2 20:46 Drug: Meclizine PO 25 mg PO once Route: PO; kj2 23:24 Follow up: Response: No adverse reaction kj2 20:47 Drug: NS 0.9% IV 500 ml 500 ml IV at 1 bolus once; to be given as a bolus over 60 kj2 minutes Volume: 500 ml; Route: IV; Rate: 1 bolus; Site: right antecubital; 21:47 Follow up: IV Status: Completed infusion; IV Intake: 500ml kj2 23:33 Drug: Ativan IVP 0.5 mg IVP once Route: IVP; Site: right antecubital; kj2 23:46 Follow up: Response: No adverse reaction; Anxiety decreased; Blood pressure is lowered kj2 09/27 00:14 Drug: Acetaminophen PO 1000 mg PO once Route: PO; kj2 00:56 Follow up: Response: No adverse reaction kj2 Medication: 09/26 23:28 VIS not applicable for this client. kj2 Intake: 21:47 IV: 500ml; Total: 500ml. kj2 Outcome: 23:31 Discharge ordered by MD. cp 23:47 Discharged to home via wheelchair, kj2 23:47 Condition: stable 23:47 Discharge instructions given to patient, family, Instructed on discharge instructions, follow up and referral plans. Demonstrated understanding of instructions, follow-up care, 09/27 00:57 Patient left the ED. kj2 Signatures: Dispatcher [employer] EDMS Lindy Vale RN RN Jean Pierre Zabala PA PA cp Espinosa, Orlando oe Able, Lacie, RN RN lg3 Maria Fernanda Woodward Tawney RN RN tm6 Tonia Masterson RN RN kj2
[2024-09-26] MEDS ORDERED: ACETAMINOPHEN 500 MG TAB ONE (23:59)
[2024-09-27 03:36] VITALS: TEMP 98; O2SAT 98
[2024-09-27 03:37] VITALS: BP 135/90
--- NOTE | 2024-09-28 10:19 | EKG ---
Test Date: 2024-09-26 Test Time: 19:48:17 [employer]: JANAK MEASUREMENT RESULTS: Intervals: Rate: 71 NJ: 126 QRSD: 86 QT: 430 QTc: 467 Carrier: P: 37 NJ: 126 QRS: -36 T: 20 INTERPRETIVE STATEMENTS: Normal sinus rhythm Left axis deviation Nonspecific ST abnormality Abnormal ECG Compared to ECG 09/25/2024 14:36:14 Left-axis deviation now present ST (T wave) deviation still present Electronically Signed On 09-28-24 10:17:55 DISTRIBUTION LINEMAN by Brian Verduzco
== END 2024-09-27 00:57 | disposition home or self-care (01) ==
LOC: ER 17:54
DX: I11.9 Hypertensive heart disease without heart failure (principal); R51.9 Headache, unspecified; H93.19 Tinnitus, unspecified ear; I10 Essential (primary) hypertension
CPT/HCPCS: 96361; 93005; 85025; 80048; 36415; 83735; 81003; 84484; 70450; 71045; 96375; 96374; 99284; J8597; J0360; J7040

== ENCOUNTER 2025-02-15 08:09 | Day surgery (SDC) | payer OTHER ==
[2025-02-15 08:43] LABS: PT Prothrombin Time 11.3 SECONDS (10-13.0); PTT, Activated Partial Thromb 27.9 SECONDS (27.2-37.4); Protime INR 0.99
[2025-02-15 08:47] LABS: Absolute Basophils 0.1 K/uL (0-0.5); Absolute Eosinophils 0.2 K/uL (0-0.5); Absolute Lymphocytes (CBC) 2.4 K/uL (0.7-4.9); Absolute Monocytes 0.9 K/uL (0.1-1.3); Absolute Neutrophil 6.9 K/uL (1.8-8.0); Basophils % 1.2 % (0-1.3); Eosinophils % 1.8 % (0-4.4); Hematocrit 39.6 % (36.0-45.0); Hemoglobin 13.5 g/dL (12.0-15.0); Lymphocytes % 23.3 % (15.3-44.8); MCH 31.2 pg (27.0-35.0); MCHC 34.1 g/dL (32.0-36.0); MCV 91.6 fL (80-100); MPV 7.7 fL (7.6-11.3); Monocytes % 8.3 % (3.3-12.3); Neutrophils % 65.4 % (41.7-73.7); Nucleated Red Blood Cells % 0.1 % (0-0); Platelets 331 thou/uL (152-406); RBC Red Blood Cell Count 4.33 M/uL (3.86-4.86); Red Cell Distribution Width 14.2 % (12.1-15.2)
[2025-02-15 09:20] VITALS: BP 125/70; TEMP 97.5; O2SAT 97; BMI 28.1
[2025-02-15 09:21] LABS: ALT/SGPT 23 U/L (13-56); Albumin 3.6 g/dL (3.4-5.0); Albumin/Globulin Ratio 1.1 (1.1-1.8); Alkaline Phosphatase 105 U/L (45-117); Anion Gap 6.8 mEq/L (5.0-15.0); BUN Blood Urea Nitrogen 13 mg/dL (7-18); Bicarbonate 24 mEq/L (21-32); Bilirubin Total 0.4 mg/dL (0.2-1.0); Globulin 3.2 g/dL (2.3-3.5); Glomerular Filtration Rate 89 ml/min (=/>90); Glucose Level 123 mg/dL (74-106); Potassium 3.8 mEq/L (3.5-5.1); Protein, Total 6.8 g/dL (6.4-8.2); Sodium Level 138 mEq/L (136-145)
[2025-02-15 09:22] LABS: AST/SGOT < 10 U/L (15-37); Bilirubin Direct < 0.2 mg/dL (0-0.2); Bilirubin Indirect, Calculated 0.2 mg/dL (0.2-0.8)
--- NOTE | 2025-02-15 12:10 | RAD REPORT ---
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 Blindstitch Lapel Padder radiographs were performed. A radiopaque object was used to brittney the site of best entry into the lumbar canal on the skin. This a alis was then prepped and draped in the usual sterile fashion. Lidocaine was used to anesthetize the skin. A 22-gauge spinal needle was then placed using fluoroscop ic guidance into the central canal of the lumbar spine. CSF was able to be obtained. A total of 10 mL was obtained. The patient tolerated the procedure well without immediate post procedure complication.
[2025-02-15 12:53] LABS: CSF Glucose 70 mg/dL (40-70)
[2025-02-15 13:04] LABS: Appearance CLEAR (CLEAR); Body Fluid Source CSF; Body Fluid WBC 2 /mm^3; Color of Supernate Not Xanthochromic (Not Xantho); Color of fluid Colorless (COLORLESS); Fluid Total Volume 12 ml; Tube # #3
== END 2025-02-15 13:21 | disposition home or self-care (01) ==
LOC: DS 08:09
PROVIDERS: ATTEND Psychiatry & Neurology Neurology with Special Qualifications in Child Neurology
PROC: 00JU3ZZ Inspection of Spinal Canal, Percutaneous Approach (ICD-10-PCS; principal; 2025-02-15)
DX: G31.84 Mild cognitive impairment of uncertain or unknown etiology (principal); D51.9 Vitamin B12 deficiency anemia, unspecified; E55.9 Vitamin D deficiency, unspecified; I10 Essential (primary) hypertension; M19.90 Unspecified osteoarthritis, unspecified site; G43.909 Migraine, unspecified, not intractable, without status migrainosus
CPT/HCPCS: 36415; 77003; 80048; 80076; 82542; 82945; 84157; 85025; 85610; 85730; 89050

== ENCOUNTER 2025-07-16 14:44 | Emergency (ER) | payer OTHER ==
[2025-07-16] MEDS ORDERED: LIDOCAINE 1% 20 ML MDV ONE (15:46)
[2025-07-16] MEDS ORDERED: CLINDAMYCIN 300 MG/NS 50 ML IV 50 ML IV ONE (16:00)
--- NOTE | 2025-07-16 16:57 | ER ---
Nurse's Notes [facility] Name: Felecia Arriaza Age: 70 yrs Sex: Female : 1955 Arrival Date: 07/16/2025 Time: 14:44 Bed 14 Private MD: Diagnosis: Cellulitis of right finger Presentation: 07/16 15:10 Chief complaint: Patient states: SWOLLEN, PAINFUL RT MIDDLE FINGER THAT IS SPREADING UP dd2 THE ARM. [facility], RECEIVING ANTIBIOTICS AND SYMPTOMS GETTING WORSE. Coronavirus screen: At this time, the client does not indicate any symptoms associated with coronavirus-19. Ebola Screen: No symptoms or risks identified at this time. Initial Sepsis Screen: Does the patient meet any 2 criteria? No. Patient's initial sepsis screen is negative. Does the patient have a suspected source of infection? No. Patient's initial sepsis screen is negative. Risk Assessment: Do you want to hurt yourself or someone else? Patient reports no desire to harm self or others. Onset of symptoms is unknown. 15:10 Method Of Arrival: Ambulatory dd2 15:10 Acuity: CARMELO 3 dd2 Triage Assessment: 15:14 General: Appears in no apparent distress. uncomfortable, Behavior is cooperative, dd2 appropriate for age, agitated. Pain: Complains of pain in right middle finger Pain currently is 4 out of 10 on a pain scale. Derm:. Derm: Skin is red, RT MIDDLE FINGER, RT HAND. Musculoskeletal: Swelling present in right middle finger. Historical: - Allergies: 15:14 Keflex; dd2 - PMHx: 15:14 Dementia; Hypertensive disorder; dd2 15:20 Diabetes mellitus; dd2 - PSHx: 15:14 hip and knee; dd2 - Immunization history:: Adult Immunizations up to date. - Infectious Disease History:: Denies. - Social history:: Smoking status: Patient denies any tobacco usage or history of. Screenin:00 [facility] ED Fall Risk Assessment (Adult) History of falling in the last 3 months, jp5 including since admission No falls in past 3 months (0 pts) Confusion or Disorientation No (0 pts) Intoxicated or Sedated No (0 pts) Impaired Gait No (0 pts) Mobility Assist Device Used No (0 pt) Altered Elimination No (0 pt) Score/Fall Risk Level 0 - 2 = Low Risk Oriented to surroundings, Maintained a safe environment, Educated pt \T\ family on fall prevention, incl call for assistance when getting out of bed, Assessed \T\ reinforced patient's understanding of fall precautions, Provided non-skid footwear, Hourly rounding (assess needs \T\ fall precautionary measures) done, Used ambulatory aids as needed (educated on \T\ assisted with). Abuse screen: Denies threats or abuse. Denies injuries from another. Nutritional screening: No deficits noted. Tuberculosis screening: No symptoms or risk factors identified. Assessment: 15:44 Reassessment: Patient and/or family updated on plan of care and expected duration. Pain ll1 level reassessed. 16:00 General: Appears in no apparent distress. Behavior is calm, cooperative. Neuro: No jp5 deficits noted. Cardiovascular: No deficits noted. Respiratory: No deficits noted. GI: No deficits noted. : No deficits noted. Musculoskeletal: Swelling present in right hand. Vital Signs: 15:10 BP 146 / 82; Pulse 66; Resp 17; Temp 98.4; Pulse Ox 96% ; Weight 79.83 kg; Height 5 ft. dd2 4 in. ; Pain 4/10; 16:00 BP 144 / 80; Pulse 66; Resp 16; Pulse Ox 98% on R/A; jp5 17:00 BP 145 / 81; Pulse 68; Resp 16; Temp 98; Pulse Ox 97% on R/A; jp5 15:10 Body Mass Index 30.21 (79.83 kg, 162.56 cm) dd2 15:10 Pain Scale: Adult dd2 ED Course: 14:53 Patient arrived in ED. cj3 14:53 Stanislav Sofia FNP-C is PHCP. dr5 14:53 Wojciech Bah DO is Attending Physician. dr5 15:14 Triage completed. dd2 15:14 Arm band placed on left wrist. dd2 15:41 Susanne Tenorio, LOIS is Primary Nurse. jp5 15:44 Patient placed in an exam room, on a stretcher. ll1 16:00 Patient has correct armband on for positive identification. Bed in low position. Call jp5 light in reach. Side rails up X 1. Provided Education on: call light use. Pulse ox on. NIBP on. 16:00 No provider procedures requiring assistance completed. jp5 16:15 Inserted saline lock: 20 gauge in left antecubital area, using aseptic technique. ts3 Flushed with 10 mL NS. 17:03 IV discontinued, intact, bleeding controlled, No redness/swelling at site. Pressure jp5 dressing applied. Administered Medications: 16:23 Drug: Clindamycin IVPB 300 mg IVPB once over 30 mins; (mix in 50 mL) Route: IVPB; jp5 Infused Over: 30 mins; Site: left antecubital; 17:03 Follow up: Response: No adverse reaction; IV Status: Completed infusion; IV Intake: 35meet9 Medication: 16:00 VIS not applicable for this client. jp5 Intake: 17:03 IV: 50ml; Total: 50ml. jp5 Outcome: 16:56 Discharge ordered by . dr5 17:03 Discharged to home ambulatory, jp5 17:03 Condition: stable 17:03 Discharge instructions given to patient, family, Instructed on discharge instructions, follow up and referral plans. Demonstrated understanding of instructions, follow-up care, 17:07 Patient left the ED. jp5 Signatures: Mackenzie Herrera RN RN ll1 Susanne Tenorio, RN RN jp5 LARA ALONSO RN RN dd2 Stanislav Sofia, INDEPENDENT FREIGHT AGENT-C INDEPENDENT FREIGHT AGENT-5 Bhakti Rodriguez cj3 Deysi Fung ts3 Corrections: (The following items were deleted from the chart) 15:20 15:10 Chief complaint: Patient states: SWOLLEN, PAINFUL RT MIDDLE FINGER THAT IS dd2 SPREADING UP THE ARM. PT REPORTS COMING HERE A COUPLE DAYS AGO, RECEIVING ANTIBIOTICS AND SYMPTOMS GETTING WORSE. dd2
--- NOTE | 2025-07-16 16:57 | EDPHYS ---
Physician Documentation [facility] Name: Felecia Arriaza Age: 70 yrs Sex: Female : 1955 Arrival Date: 07/16/2025 Time: 14:44 Bed 14 Private MD: ED Physician Wojciech Bah HPI: 07/16 19:07 This 70 yrs old Female presents to ER via Ambulatory with complaints of dr5 Finger Problem= RT HAND. 19:07 Onset: The symptoms/episode began/occurred acutely. Patient is a 70-year-old female dr5 with history of dementia, hypertension, diabetes coming in with third right digit paronychia this been going on for the past week. [facility] and states that opening up wound will make infection worse and has not been incised or drained. Patient reports worsening swelling and pain since then.. Historical: - Allergies: 15:14 Keflex; dd2 - PMHx: 15:14 Dementia; Hypertensive disorder; dd2 15:20 Diabetes mellitus; dd2 - PSHx: 15:14 hip and knee; dd2 - Immunization history:: Adult Immunizations up to date. - Infectious Disease History:: Denies. - Social history:: Smoking status: Patient denies any tobacco usage or history of. ROS: 19:07 Constitutional: as per hpi dr5 Exam: 19:07 Constitutional: This is a well developed, well nourished patient who is awake, alert, dr5 and in no acute distress. Head/Face: Normocephalic, atraumatic. Eyes: Pupils equal round and reactive to light, extra-ocular motions intact. Lids and lashes normal. Conjunctiva and sclera are non-icteric and not injected. Cornea within normal limits. Periorbital areas with no swelling, redness, or edema. Neck: Trachea midline, no thyromegaly or masses palpated, and no cervical lymphadenopathy. Supple, full range of motion without nuchal rigidity, or vertebral point tenderness. No Meningismus. Chest/axilla: Normal chest wall appearance and motion. Nontender with no deformity. No lesions are appreciated. Cardiovascular: Regular rate and rhythm with a normal S1 and S2. Normal PMI, no JVD. No pulse deficits. Respiratory: Lungs have equal breath sounds bilaterally, clear to auscultation. No rales, rhonchi or wheezes noted. No increased work of breathing, no retractions or nasal flaring. Back: No spinal tenderness. No costovertebral tenderness. Full range of motion. Skin: Warm, dry with normal turgor. Normal color with no rashes, no lesions, and no evidence of cellulitis. MS/ Extremity: Pulses equal, no cyanosis. Neurovascular intact. Full, normal range of motion. Swelling and infection consistent with paronychia to the third right digit noted. Neuro: Awake and alert, GCS 15, oriented to person, place, time, and situation. Cranial nerves II-XII grossly intact. Motor strength 5/5 in all extremities. Sensory grossly intact. Cerebellar exam normal. Normal gait. Vital Signs: 15:10 BP 146 / 82; Pulse 66; Resp 17; Temp 98.4; Pulse Ox 96% ; Weight 79.83 kg; Height 5 ft. dd2 4 in. ; Pain 4/10; 16:00 BP 144 / 80; Pulse 66; Resp 16; Pulse Ox 98% on R/A; jp5 17:00 BP 145 / 81; Pulse 68; Resp 16; Temp 98; Pulse Ox 97% on R/A; jp5 15:10 Body Mass Index 30.21 (79.83 kg, 162.56 cm) dd2 15:10 Pain Scale: Adult dd2 Procedures: 19:07 I \T\ D: Incision and drainage was performed for an abscess of the right dorsal aspect of dr5 distal phalanx of right middle finger and right middle fingernail Prepped with alcohol, Anesthetized with 3 ml's 1% Lidocaine. Incised with #11 blade. Drained moderate amount purulent fluid. Loculations removed. Abscess cavity explored. Packed with Dressing: Bandaid the patient tolerated the procedure well. MDM: 14:54 Medical Screening Exam initiated dr5 19:07 Differential Diagnosis Paronychia, abscess, cellulitis. Data reviewed: vital signs, dr5 nurses notes. Consideration of Admission/Observation Escalation of care including admission/observation considered. Escalation considered if patient found to have fever. I considered the following discharge prescriptions or medication management in the emergency department I discussed and recommended Over The Counter medications, Medications were administered in the Emergency Department. See MAR. Care significantly affected by the following chronic conditions: Diabetes, Hypertension. Care significantly affected by the following Social Determinants of Health: Poor access to healthcare and/or lack of insurance, Poor access to transportation, Problems related to employment. Counseling: I had a detailed discussion with the patient and/or guardian regarding the historical points, exam findings, and any diagnostic results supporting the discharge/admit diagnosis, the presence of at least one elevated blood pressure reading (>120/80) during this emergency department visit, to return to the emergency department if symptoms worsen or persist or if there are any questions or concerns that arise at home. Medication response: Clindamycin. Special discussion: I discussed with the patient/guardian in detail that at this point there is no indication for admission to the hospital. It is understood, however, that if the symptoms persist or worsen the patient needs to return immediately for re-evaluation. Based on the history and exam findings, there is no indication for further emergent testing or inpatient evaluation. I discussed with the patient/guardian the need to see the primary care provider for further evaluation of the symptoms. ED course: Clindamycin IV given. Paronychia drained with purulent drainage. All questions answered. Will have patient continue doxycycline. All questions answered. Patient agreeable plan.. 07/16 15:38 Order name: Incision \T\ Drainage Setup; Complete Time: 15:53 dr5 07/16 15:38 Order name: IV Start; Complete Time: 16:15 dr5 Administered Medications: 16:23 Drug: Clindamycin IVPB 300 mg IVPB once over 30 mins; (mix in 50 mL) Route: IVPB; jp5 Infused Over: 30 mins; Site: left antecubital; 17:03 Follow up: Response: No adverse reaction; IV Status: Completed infusion; IV Intake: [id number] Disposition Summary: 07/16/25 16:56 Discharge Ordered Notes: Location: Home dr5 Condition: Stable dr5 Diagnosis - Cellulitis of right finger dr5 Followup: dr5 - With: Emergency Department - When: As needed - Reason: Worsening of condition Followup: dr5 - With: Private Physician - When: 1 - 2 days - Reason: Recheck today's complaints, Continuance of care, Re-evaluation by your physician Discharge Instructions: - Discharge Summary Sheet dr5 - Cellulitis, Adult dr5 - Incision and Drainage dr5 Forms: - Medication Reconciliation Form dr5 - Antibiotic Education dr5 - Patient Portal Instructions dr5 - Leadership Thank You Letter dr5 Signatures: Susanne Tenorio RN RN jp5 LARA ALONSO RN RN dd2 Stanislav Sofia, CREATIVE PRODUCER-C CREATIVE PRODUCER-Cdr5
[2025-07-16 17:25] VITALS: BP 145/81; TEMP 98; O2SAT 97
== END 2025-07-16 17:07 | disposition home or self-care (01) ==
LOC: ER 14:44
PROC: 0H9FXZZ Drainage of Right Hand Skin, External Approach (ICD-10-PCS; principal; 2025-07-16)
DX: L03.011 Cellulitis of right finger (principal)
CPT/HCPCS: 96365; 99284; 10060; J2003; J3490

== ENCOUNTER 2025-07-21 08:44 | Day surgery (SDC) | payer OTHER ==
[2025-07-21 09:58] LABS: Absolute Lymphocytes (CBC) 2.0 K/uL (0.7-4.9); Hematocrit 36.9 % (36.0-45.0); Hemoglobin 12.5 g/dL (12.0-15.0); MCH 30.5 pg (27.0-35.0); MCHC 33.9 g/dL (32.0-36.0); MCV 90.0 fL (80-100); MPV 7.4 fL (7.6-11.3); Nucleated RBC Absolute Count 0.0 (0-0); Nucleated Red Blood Cells % 0.0 % (0-0); RBC Red Blood Cell Count 4.10 M/uL (3.86-4.86); White Blood Count 7.90 thou/uL (4.3-10.9)
[2025-07-21 10:10] LABS: PT Prothrombin Time 12.6 SECONDS (10-13.0); PTT, Activated Partial Thromb 27.3 SECONDS (27.2-37.4); Protime INR 1.12
[2025-07-21 10:16] LABS: ALT/SGPT 24 U/L (13-56); AST/SGOT 14 U/L (15-37); Albumin 3.3 g/dL (3.4-5.0); Albumin/Globulin Ratio 1.0 (1.1-1.8); Alkaline Phosphatase 104 U/L (45-117); Anion Gap 9.8 mEq/L (5.0-15.0); BUN Blood Urea Nitrogen 12 mg/dL (7-18); Globulin 3.4 g/dL (2.3-3.5); Glucose Level 120 mg/dL (74-106); Potassium 3.8 mEq/L (3.5-5.1)
[2025-07-21 10:18] LABS: Bilirubin Indirect, Calculated 0.3 mg/dL (0.2-0.8)
[2025-07-21 13:56] VITALS: BP 126/60; TEMP 98.8; O2SAT 96
[2025-07-21 13:57] VITALS: BMI 29.5
[2025-07-21 14:02] LABS: Color of Supernate Not Xanthochromic (Not Xantho); Color of fluid Colorless (COLORLESS); Fluid Total Volume 12 ml
--- NOTE | 2025-07-21 17:23 | RAD REPORT ---
PROCEDURE: FLUOROSCOPY GUIDED LUMBAR PUNCTURE CLINICAL INDICATION: LP COMPLICATIONS: No immediate complications. PROCEDURE DETAILS: Consent: Informed consent for the procedure including risks, benefits and alternatives was obtained a nd time-out was performed prior to the procedure. Preparation: The patient was positioned prone on the fluoroscopic table. Appropriate area of the back was prepared and draped using all elements of maximal sterile barrier technique including sterile gloves, sterile gown, cap, mask, large sterile sheet, hand hygiene and cutaneous antisepsis with 2% c hlorhexidine. Imaging prior to procedure: Plain radiographs of the lumbar spine. Procedure: Local anesthesia was administered. Under fluoroscopic guidance, a spinal needle was advanc ed into the subarachnoid space at the level of L3-4. Fluid obtained: 12.5 cc of clear CSF Opening pressure: Subjectively normal. Fluoroscopy time: 0.35 minutes Estimated blood loss: Less than 10 mL. IMPRESSION: Technically successful fluoroscopic-guided lumbar puncture as detailed.
[2025-07-30 14:13] LABS: BETA A 40 12362.0 pg/mL; BETA A 42 2215.0 pg/mL; BETA A 42/40 RATIO 0.18
== END 2025-07-21 13:39 | disposition home or self-care (01) ==
LOC: DS 08:44
PROVIDERS: ATTEND Psychiatry & Neurology Neurology with Special Qualifications in Child Neurology
DX: G31.84 Mild cognitive impairment of uncertain or unknown etiology (principal); D51.9 Vitamin B12 deficiency anemia, unspecified; E55.9 Vitamin D deficiency, unspecified; I10 Essential (primary) hypertension; M19.90 Unspecified osteoarthritis, unspecified site; G43.909 Migraine, unspecified, not intractable, without status migrainosus
CPT/HCPCS: 36415; 62328; 80048; 80076; 82542; 82945; 84157; 85025; 85610; 85730; 89050